=== PATIENT | female | born 1940 | race Caucasian/White ===

== ENCOUNTER → 2021-01-25 11:20 | Outpatient (CLI) | payer OTHER, SELFPAY ==
--- NOTE | 2021-01-25 11:24 | DI.RAD.S_ITS ---
PROCEDURE: XR KNEE LT 3V INDICATIONS: post fall TECHNIQUE: 3 views of the knee were acquired. COMPARISON: None. FINDINGS: Bones: Old fracture with internal fixation involving the inferior aspect of patella. 3 surgical screws are present and appear intact. fractures or dislocations. No suspicious bony lesions. There is severe degenerative joint disease, most pronounced in the lateral femorotibial compartment and patellofemoral compartment. Possible small intra-articular body in the superior knee joint. Soft tissues: Moderate joint effusion. No suspicious soft tissue calcifications. IMPRESSION: 1. Old fracture with internal fixation involving the inferior aspect of patella. No acute fractures identified. 2. Moderate knee joint effusion. 3. Severe degenerative joint disease. 4. Possible small intra-articular body in superior knee joint. Dictated by: Corrina Guzman M.D. on 01/25/2021 at 11:59 Approved by: Corrina Guzman M.D. on 01/25/2021 at 12:01
== END ==
PROVIDERS: Referring Provider Physician Assistant; Visit Provider Physician Assistant
DX: M25.561 Pain in right knee (principal); M25.461 Effusion, right knee; M17.11 Unilateral primary osteoarthritis, right knee; Z87.81 Personal history of (healed) traumatic fracture
CPT/HCPCS: 73562